=== PATIENT | female | born 1995 | race Caucasian/White ===

== ENCOUNTER → 2020-12-28 13:29 | Outpatient (BNVA) | payer OTHER, SELFPAY | PROVIDERS: PCP Pediatrics; Visit Provider Internal Medicine Endocrinology, Diabetes & Metabolism ==

== ENCOUNTER → 2021-01-12 07:12 | Outpatient (BNVA) | payer OTHER, SELFPAY | PROVIDERS: PCP Pediatrics; Visit Provider Surgery ==

== ENCOUNTER 2021-01-14 12:03 | Outpatient (REF) | payer OTHER, SELFPAY ==
--- NOTE | ~2021-01-14 | XR_ITS ---
EXAMINATION: XR CHEST CLINICAL INFORMATION: Obesity COMPARISON: None TECHNIQUE: 2 views of the chest were obtained. FINDINGS: No significant abnormality is noted involving the heart, lungs, mediastinum, bony thorax or soft tissues. XR/XR chest 2V IMPRESSION: Unremarkable examination.
--- NOTE | 2021-01-14 12:09 | ECG_ITS ---
Test Reason : OBESITY Blood Pressure : / mmHG Vent. Rate : 078 BPM Atrial Rate : 078 BPM P-R Int : 152 ms QRS Dur : 086 ms QT Int : 390 ms P-R-T Axes : 043 017 029 degrees QTc Int : 444 ms Normal sinus rhythm Normal ECG No significant changes when compared with the previous EKG of 02 mar 2008 Referred By: Mauri Garnica Electronically Signed By:PAVAN NUNEZ
[2021-01-14 13:09] LABS: MANUAL DIFF FLAG NO
[2021-01-14 13:12] LABS: Basophils Percent Auto 0.2 % (0-2); Eosinophils Absolute Auto 0.2 X10*3/uL (0.0-0.4); Eosinophils Percent Auto 1.6 % (0-4); Hematocrit 36.2 % (37-47); Hemoglobin 11.7 g/dl (12.0-16.0); Imm Gran Abs Auto 0.06 X10*3/uL (0.00-0.03); Imm Gran Pct Auto 0.5 % (0.0-0.4); Lymphocytes Absolute Auto 2.1 X10*3/uL (1.2-4.9); Lymphocytes Percent Auto 18.6 % (20-40); Mean Corpuscular HGB Conc 32.3 g/dl (31.0-35.0); Mean Corpuscular Hemoglobin 26.8 pg (27.0-33.0); Mean Platelet Volume 10.7 fL (9.4-12.3); Monocytes Absolute Auto 0.3 X10*3/uL (0.1-1.2); Monocytes Percent Auto 2.9 % (2-11); Neutrophils Absolute Auto 8.5 X10*3/uL (2.0-8.3); Neutrophils Percent Auto 76.2 % (45-73); Platelet Count 520 X10*3/uL (160-400); Red Blood Count 4.36 X10*6/uL (4.20-5.50); Red Cell Distribution Width 16.4 % (11.0-16.0); White Blood Count 11.1 X10*3/uL (4.8-10.8)
[2021-01-14 13:27] LABS: Estimated Average Glucose 117 mg/dL; Hemoglobin A1c % 5.7 %
[2021-01-14 14:04] LABS: Alanine Aminotransferase 11 U/L (0-31); Albumin Level 4.4 g/dL (3.5-5.0); Alkaline Phosphatase 111 U/L (39-117); Anion Gap 15 (12-20); Aspartate Amino Transferase 11 U/L (5-31); Bilirubin Total 0.2 mg/dL (0.0-1.0); Blood Urea Nitrogen 12 mg/dL (9-16); C Reactive Protein 3.22 mg/dL (< or = 0.50); Calcium 10.1 mg/dL (8.4-10.2); Carbon Dioxide 23 mmol/L (22-29); Chloride 108 mmol/L (96-108); Cholesterol 143 mg/dL; Estimated Glomerular Filt Rate > 60; Glucose Random 95 mg/dL (60-115); HDL Cholesterol 38 mg/dL; Iron 34 mcg/dL (30-160); LDL Cholesterol Calculated 77 mg/dl; Percent Iron Saturation 10 % (15-50); Potassium 4.5 mmol/L (3.3-5.1); Sodium 141 mmol/L (135-145); Total Iron Binding Capacity 324 mcg/dL (228-428); Triglycerides 144 mg/dL; Unsaturated Iron Binding 290 ug/dL
[2021-01-14 14:17] LABS: Vitamin B12 289 pg/mL (200-900)
[2021-01-14 14:25] LABS: Ferritin 19 ng/mL (10-122); TSH reflex Free T4 1.52 uIU/mL (0.32-4.0); Vitamin D 25-OH Total 15.6 ng/mL (>30)
[2021-01-17 15:47] LABS: Calcium (PTHI) 9.7 mg/dL (8.6-10.2); PTHI 36 pg/mL (14-64)
[2021-01-17 17:27] LABS: Insulin Level Total 31.5 uIU/mL
[2021-01-18 17:26] LABS: Zinc 68 mcg/dL (60-130)
[2021-01-19 16:07] LABS: Vitamin A 57 mcg/dL (38-98)
[2021-01-20 15:01] LABS: Vitamin B1 15 nmol/L (8-30)
== END 2021-01-14 12:04 | disposition home or self-care (01) ==
LOC: HO.XRAY 12:03
PROVIDERS: Visit Provider Surgery
DX: E66.9 Obesity, unspecified (principal); Z68.39 Body mass index [BMI] 39.0-39.9, adult; J45.909 Unspecified asthma, uncomplicated
CPT/HCPCS: 36415; 71046; 80053; 80061; 82306; 82607; 82728; 82746; 83036; 83525; 83540; 83970; 84425; 84443; 84590; 84630; 85025; 86140; 93005

== ENCOUNTER 2021-02-15 13:34 | Outpatient (REF) | payer OTHER, SELFPAY ==
[2021-02-16 12:26] LABS: H Pylori Breath Test NOT DETECTED (NOT DETECTED)
== END 2021-02-15 13:35 | disposition home or self-care (01) ==
LOC: HO.LNP 13:34
PROVIDERS: Surgery; PCP Pediatrics; Visit Provider Physician Assistant
DX: E66.9 Obesity, unspecified (principal); Z68.39 Body mass index [BMI] 39.0-39.9, adult; J45.909 Unspecified asthma, uncomplicated
CPT/HCPCS: 83013; 99211

== ENCOUNTER → 2021-02-23 08:11 | Outpatient (BNVA) | payer OTHER, SELFPAY | PROVIDERS: Visit Provider Dietitian, Registered ==

== ENCOUNTER → 2021-02-25 07:11 | Outpatient (BNVA) | payer OTHER, SELFPAY | PROVIDERS: Visit Provider Surgery ==

== ENCOUNTER → 2021-03-14 08:15 | Outpatient (BNVA) | payer MEDICAID, SELFPAY | PROVIDERS: PCP Surgery; Visit Provider Dietitian, Registered | DX: E66.9 Obesity, unspecified (principal); Z68.38 Body mass index [BMI] 38.0-38.9, adult | CPT/HCPCS: 97802 ==

== ENCOUNTER → 2021-04-06 08:10 | Outpatient (BNVA) | payer MEDICAID, SELFPAY | PROVIDERS: PCP Family Medicine; Referring Provider Surgery; Visit Provider Dietitian, Registered ==